=== PATIENT | female | born 1950 | race Caucasian/White ===

== ENCOUNTER 2016-09-06 15:00 | Inpatient (IN) | payer MEDICARE, OTHER ==
[~2016-09-06] VITALS: Ht 156.2 cm; Wt 66.1 kg
--- NOTE | ~2016-09-06 | OR ---
PATIENT'S NAME: NAA DASH [facility] AGE: 66 Y [address] ROOM: [place] [address] LOCATION: [facility] ADMIT DATE: 09/13/2016 OR/Procedure Report DISCHARGE DATE: FAMILY PHYSICIAN: Demarcus Braun MD ATTENDING PHYSICIAN: KYRIE LEO SURGEON: Kyrie Leo MD CAMPER ASSEMBLER: None. DATE OF PROCEDURE: 09/13/2016 PRE-OP DIAGNOSES: 1. Degenerative joint disease left knee. 2. Retained hardware left proximal tibia. 3. Healed left tibial plateau fracture. 4. Medial collateral ligament laxity. POST-OP DIAGNOSES: 1. Degenerative joint disease left knee. 2. Retained hardware left proximal tibia. 3. Healed left tibial plateau fracture. 4. Medial collateral ligament laxity. OPERATION: 1. Complex primary left total knee arthroplasty with computer navigation. 2. Removal of hardware left proximal tibia (6 screws and medial proximal tibial locking plate). ANESTHESIA: Spinal anesthesia plus adductor canal block plus subcutaneous and periarticular local anesthesia (ropivacaine with epinephrine and Toradol). ESTIMATED BLOOD LOSS: Less than 10 mL. DRAIN: None. SPECIMEN: None. COMPLICATIONS: None. IMPLANT SYSTEM: [place] [employer]. 1. Size 3 left total stabilized femoral component with 12 x 50 mm cemented femoral stem extension. 2. Size 2 universal modular tibial base plate with 12 x 50 mm cemented tibial stem extension. Size medium femoral canal cement restrictor. Size small tibial canal cement restrictor. 3. A 9 mm total stabilized size 2 tibial polyethylene insert. 4. A 29 mm oval x3 patella component. PATIENT'S NAME: NAA DASH [facility] AGE: 66 Y [address] ROOM: [place] [address] LOCATION: [facility] ADMIT DATE: 09/13/2016 OR/Procedure Report DISCHARGE DATE: FAMILY PHYSICIAN: Demarcus Braun MD ATTENDING PHYSICIAN: KYRIE LEO INDICATIONS FOR SURGERY: Naa Dash is a 66-year-old female who presents with advanced left knee degenerative joint disease and associated severely compromised activities of daily living. The patient has decided to proceed with knee replacement after having been thoroughly counseled regarding the associated risks, benefits, and limitations. We have specifically reviewed the risks and implications of infection, deep venous thrombosis, pulmonary embolism, mortality, neurovascular complications, blood transfusion (and associated potential for disease transmission or transfusion reaction), stiffness, instability, mechanical deterioration of the components (due to wear and or loosening), and the potential need for revision. We have also emphasized the importance of active involvement and compliance with post- operative physical therapy as a means of optimizing range of motion and functional recovery. Informed consent has been granted. DESCRIPTION OF PROCEDURE: The patient was positioned supine after administration of anesthesia and prophylactic antibiotics. A well-padded pneumatic tourniquet was placed around the left proximal thigh, and the left lower extremity was prepped and draped with vigilant sterile technique. The patient's name as well as the intended operative side and procedure were confirmed with a verbal time-out involving myself, the circulating nurse, the scrub nurse, and the anesthesiologist. Examination under anesthesia demonstrated a well healed arthroscopy portal scars and a well healed longitudinal midline scar. There was a mild effusion. There was a valgus deformity. There was severe quadriceps atrophy. There were no active skin lesions or masses. There was no erythema. There was no abnormal warmth. Range of motion under anesthesia was from full extension to 130 degrees of flexion. There was 3 mm of medial collateral ligament laxity. There was no other ligamentous insufficiency. The left lower extremity was elevated and exsanguinated with an Esmarch wrap, and the pneumatic tourniquet was inflated to 300 mmHg. The knee was approached through a longitudinal midline incision. A medial parapatellar arthrotomy was performed and the patella was everted. Examination of the joint space demonstrated a moderate amount of benign appearing translucent synovial fluid. There was extensive fibrosis of the infrapatellar fat pad. The anterior cruciate ligament was severely attenuated, but intact. The posterior cruciate ligament was intact. There was no active synovitis. There were no loose bodies. There were small osteophytes at the intracondylar notch. There was a 1 cm diameter region of full-thickness articular cartilage loss at the medial margin of the patella. There was a small osteophyte at the lateral margin of the femoral trochlea. There was a large osteophyte at the medial femoral PATIENT'S NAME: NAA DASH [facility] AGE: 66 Y [address] ROOM: [place] [id number] LOCATION: [facility] ADMIT DATE: 09/13/2016 OR/Procedure Report DISCHARGE DATE: FAMILY PHYSICIAN: Demarcus Braun MD ATTENDING PHYSICIAN: KYRIE LEO. There was a 1 x 3 cm region of high-grade partial thickness articular cartilage loss at the medial tibial plateau and a 1 cm diameter region of full-thickness articular cartilage loss at the lateral aspect of the medial femoral condyle. There was a large osteophyte at the lateral femoral condyle. There was a moderate sized osteophyte at the lateral tibial plateau. There was full-thickness loss of articular cartilage throughout the posterolateral half of the lateral femoral condyle and the posterior half of the lateral tibial plateau. There was a small degenerative peripheral remnant of the lateral meniscus. There was mild inner perimeter tearing of the medial meniscus. Remnants of the menisci and cruciate ligaments were excised. The [employer] computer navigation femoral tracker was pinned in place at the distal aspect of the femoral trochlea. Absence of motion between the femur and the tracking device was confirmed manually and visually. Femoral osseous landmarks were obtained in order to calibrate the computer navigation system. Landmarks included the center of rotation of the ipsilateral hip, the center-point of the distal femur, the femoral AP axis, 57 points on the medial femoral condyle articular surface, and 57 points on the lateral femoral condyle articular surface. The Med[employer] computer navigation system was subsequently utilized to position the distal femoral resection block such that the distal femoral resection was performed perfectly perpendicular to the femoral mechanical axis. The distal femoral resection was performed with a SIZESEEKER Precision oscillating saw. The Medocity computer navigation tibial tracker was pinned in place at the anterior aspect of the tibial plateau. Absence of motion between the tibia and the tracking device was confirmed manually and visually. Tibial osseous landmarks were obtained in order to calibrate the computer navigation system. Landmarks included the center-point of the tibial plateau, the AP tibial axis, 57 points on the medial tibial plateau articular surface, 57 points on the lateral tibial plateau articular surface, the medial malleolus, and the lateral malleolus. The Med[employer] computer navigation system was subsequently utilized to position the proximal tibial resection block such that the proximal tibial resection was performed perfectly perpendicular to the tibial mechanical axis. The proximal tibial resection was performed with a SIZESEEKER Precision oscillating saw. Perpendicularity of the tibial resection with respect to the tibial shaft axis was reconfirmed by inserting a spacer- block attached to an extramedullary guide jose. External rotation of the anterior and posterior femoral resections was set parallel to the epicondylar axis and carefully adjusted in order to create a rectangular flexion gap. The box resection was performed with a reciprocating saw. Anterior and posterior chamfer resections were performed with the oscillating saw. Posterior condyle osteophytes were excised with an PATIENT'S NAME: NAA DASH [facility] AGE: 66 Y [address] ROOM: [address] [address] LOCATION: [facility] ADMIT DATE: 09/13/2016 OR/Procedure Report DISCHARGE DATE: FAMILY PHYSICIAN: Demarcus Braun MD ATTENDING PHYSICIAN: KYRIE LEO osteotome. All other osteophytes were excised with a rongeur. Resection of all remnants of the menisci was reconfirmed. Flexion and extension gaps were confirmed to be symmetric and well balanced with a spacer-block technique. The patella resection was performed with an oscillating saw such that the composite thickness of the reconstructed patella was equivalent to the thickness of the craig patella. Patella tracking was confirmed to be optimal. A lateral retinacular release was required in order to optimize patellar tracking. All trial components were removed and all prepared osseous surfaces were thoroughly irrigated with pulsatile saline lavage and dried prior to cementing all three components in a single stage using SIZESEEKER Simplex cement containing pre-mixed tobramycin. All extruded excess cement was removed. The entire joint space was thoroughly inspected and thoroughly irrigated with bacteriostatic pulsatile saline lavage to assure that there was no residual debris of any sort. Final range of motion was from full extension (with no passive hyperextension) to 130 degrees of flexion. Patella tracking was reconfirmed to be optimal. There was excellent anteroposterior stability at 90 degrees of flexion. There was less than 1 mm of medial lift-off to valgus stress in full extension (with the total stabilized insert in place). There was 6 mm of medial lift-off with the standard trial insert in place. There was 0 mm of lateral lift-off to varus stress in full extension. The arthrotomy was closed with multiple simple and [id number] interrupted #1 Vicryl. Subcutaneous tissues were thoroughly re-irrigated with bacteriostatic pulsatile saline lavage. Subcutaneous tissues were re- approximated with simple buried interrupted #0 Vicryl sutures. The skin was closed with simple buried interrupted 2-0 Vicryl sutures followed by surgical luis f. The dressing consisted of Xeroform gauze, 4x4 gauze, ABD pads and two 6-inch Ronald Wraps. There were no intra-operative complications. It should be noted that the total stabilized insert was necessary due to medial collateral ligament laxity (even after extensive release of the iliotibial band and popliteus had been conducted). Because of the constrained insert, cemented tibial and femoral stems were necessary. It should be noted that the physician's assistant boiler operator played an active, integral role throughout this entire operation. By providing expert retraction, they PATIENT'S NAME: NAA DASH [facility] AGE: 66 Y [address] ROOM: [place] [address] LOCATION: [facility] ADMIT DATE: 09/13/2016 OR/Procedure Report DISCHARGE DATE: FAMILY PHYSICIAN: Demarcus Braun MD ATTENDING PHYSICIAN: KYRIE LEO greatly facilitated and expedited safe and effective exposure of the distal femur, proximal tibia and patella for preparation and implantation of the components. They were also actively involved in the patient's positioning, prepping and draping, as well as wound closure. MD SHRUTHI ARANDAW/modl /[id number] d: 09/14/16 0153 t: 09/18/16 1203, OPERATIVE SUMMARY
[~2016-09-06 15:00] MED LIST: DIOVAN80 MG PO; PRILOSEC20 MG PO
[2016-09-15] MEDS ORDERED: TYLENOL EXTRA500 MG PO (11:05)
[2016-09-15] MEDS ORDERED: COLACE100 MG PO (11:05)
[2016-09-15] MEDS ORDERED: NEURONTIN300 MG PO (11:06)
[2016-09-15] MEDS ORDERED: MIRALAX17 GM PO (11:14)
[2016-09-15] MEDS ORDERED: XARELTO10 MG PO (11:15)
[2016-09-15] MEDS ORDERED: VALIUM5 MG PO (11:18)
[2016-09-15] MEDS ORDERED: DILAUDID 2MG(HYD2 MG PO (11:19)
== END 2016-09-15 13:20 | disposition disaster alternative care site (69) | DRG 470 ==
LOC: G3N 09-13 08:57
PROVIDERS: ADMIT Orthopaedic Surgery
DX: M17.12 Unilateral primary osteoarthritis, left knee (principal); M23.92 Unspecified internal derangement of left knee; S82.142D Displaced bicondylar fracture of left tibia, subsequent encounter for closed fracture with routine healing; Z96.9 Presence of functional implant, unspecified; Z23 Encounter for immunization
CPT/HCPCS: C1713; C1776; G0009; J1100; J1885; J2250; J2795; J7120